=== PATIENT | male | born 1950 | race Caucasian/White ===

== ENCOUNTER 2023-09-12 19:20 | Outpatient (OUT) | payer MEDICARE, OTHER, SELFPAY | END 2023-09-12 19:21 | disposition home or self-care (01) | LOC: SLEEP 19:22 | DX: G47.33 Obstructive sleep apnea (adult) (pediatric) (principal) ==

== ENCOUNTER 2023-10-09 19:18 | Outpatient (OUT) | payer MEDICARE, OTHER, BC, SELFPAY ==
--- OUTSIDE RECORDS SUMMARY | 2023-10-09 19:21 | XMS_ITS | CCD ---
Author Name Unknown Address [address] [place] [address] Organization [facility] Care Team Providers Care Broadcast Director Operations Name Role Phone AVASTHI, GLORIA Referring Unavailable ENA GARCIA Primary Care Un available Ena Garcia Primary Care Provi radha Ena Garcia MD Primary Care Pr ovider MIS, DOCTOR Attending Unavailable MISC, DOCTOR Consulting Unavailable MISC, DOCTOR Admitting Unavailable Ena Garcia MD Primary Care Pr ovider Ena Garcia MD Primary Care Pr ovider Ena Garcia MD Primary Care Pr ovider ENA GARCIA Primary Care Un available AVASTHI, GLORIA Referring Unavailable AVJUDYI, GLORIA Referring Unavailable ENA GARCIA Primary Care Un available Medications Current Medications Medication Drug Class(es) Dates Sig (Normalized) Sig (Original) [id number] 200 actuat albuterol 0.09 mg/actuat metered dose inhaler (2 sources) beta2-Adrenergic Agonist Start: 10-25-2020 take 2 puff(s) by inhalation every six hours as needed for wheezing albuterol sulfate HFA (VENTOLIN HFA) 108 (90 Base) MCG/ACT inhaler Indications: COPD, severe (HCC) Inhale 2 puffs into the lungs every 6 hours as needed for Wheezing 1 Inhaler 5 10/25/2020 Active albuterol 0.833 mg/ml / ipratropium bromide 0.167 mg/ml inhalation solution (8 sources) Anticholinergic, beta2-Adrenergic Agonist Start: 10-25-2020 take 3 mL by inhalation three times daily ipratropium-albut luis f (DUONEB) 0.5-2.5 (3) MG/3ML SOLN nebulizer solution Indications: COPD, severe (HCC) Inhale 3 mLs into the lungs 3 times daily 360 mL 5 10/25/2020 Active Start: 02-24-2019 take 3 mL by inhalat ion three times daily ipratropium-albuterol (DUONEB) 0.5-2.5 (3) MG/3ML SOLN nebulizer solution Indications: COPD, severe (HCC) Inhale 3 mLs into the lungs 3 times daily 360 mL 5 02/24/2019 Active arformoterol 0.0075 mg/ml inhalation solution (4 sources) beta2-Adrenergic Agonist Start: 08-15-2021 Arformoterol Tartrate (BROVANA) 15 MCG/2ML NEBU Indications: COPD, severe (HCC) , Centrilobular emphysema (HCC) 1 ampule nebulized twice daily inhaled 180 vials 3 refils 120 mL 3 08/15/2021 Active aspirin 81 mg oral tablet (8 sources) Platelet Aggregation Inhibitor, Nonsteroidal Anti-inflammatory Drug Start: 02-11-2016 take 1 tablet by mouth once daily aspirin 81 MG tablet Take 1 tablet by mouth daily 1 tablet 0 02/11/2016 Active atorvastatin 80 mg oral tablet (8 sources) HMG-CoA Reductase Inhibitor Start: 01-01-2015 take 1 tablet by mouth once daily atorvastatin (LIPITOR) 80 MG tablet Take 1 tablet by mouth nightly. 30 tablet 3 01/01/2015 Active azithromycin 250 mg oral tablet (4 sources) Macrolide Antimicrobial Start: 01-22-2023 azithromycin (ZITHROMAX Z-MUMTAZ) 250 MG tablet Indications: COPD exacerbation (HCC) Azithromycin 250 mg po two tabs first day Then 250 mg po daily one tab for next 4 days 6 tablet 0 01/22/2023 Active Start: 05-02-2021 azithromycin ( ZITHROMAX Z-MUMTAZ) 250 MG tablet Indications: COPD, severe (HCC) Azithromycin 250 mg po two tabs first day Then 250 mg po daily one tab for next 4 days 6 tablet 0 05/02/2021 Active budesonide 0.125 mg/ml inhalation suspension (4 sources) Corticosteroid Start: 08-15-2021 budesonide (PULMICORT) 0.25 MG/2ML nebulizer suspension Indications: COPD, severe (HCC) , Centrilobular emphysema (HCC) Take 2 mLs by nebulization 2 times daily 180 each 3 08/15/2021 Active 60 actuat budesonide 0.08 mg/actuat / formoterol fumarate 0.0045 mg/actuat metered dose inhaler (3 sources) Corticosteroid, beta2-Adrenergic Agonist Start: 05-02-2021 End: 06-01-2021 take 2 puff(s) by inhalation twice daily budesonide-formote rol (SYMBICORT) 80-4.5 MCG/ACT AERO Indications: COPD, severe (HCC) Inhale 2 puffs into the lungs 2 times daily 3 Inhaler 3 05/02/2021 06/01/2021 Active Start: 10-07-2019 take 2 puff(s) by in halation twice daily budesonide-formoterol (SYMBICORT) 80-4.5 MCG/ACT AERO Inhale 2 puffs into the lungs 2 times daily 1 Inhaler 0 10/07/2019 Active carvedilol 25 mg oral tablet (6 sources) alpha-Adrenergic Virgil, beta-Adrenergic Virgil Start: 03-25-2021 take 1 tablet by mouth twice daily carvedilol (COREG) 25 MG tablet TAKE 1 TABLET BY MOUTH TWICE DAILY 0 03/25/2021 Active doxycycline hyclate 100 mg oral capsule (1 source) Tetracycline-class Drug take 1 capsule by mouth twice daily doxycycline hyclate (VIBRAMYCIN) 100 MG capsule Take 100 mg by mouth 2 times daily 0 Active fluticasone propionate 0.05 mg/actuat metered dose nasal spray (2 sources) Corticosteroid Start: 08-12-2019 take 1 spray(s) nasal route once daily fluticasone (FLONASE) 50 MCG/ACT nasal spray Indications: Acute seasonal allergic rhinitis due to pollen SPRAY 1 SPRAY INTO EACH NOSTRIL EVERY DAY 1 Bottle 2 08/12/2019 Active 120 actuat fluticasone propionate 0.045 mg/actuat / salmeterol 0.021 mg/actuat metered dose inhaler (1 source) Corticosteroid, beta2-Adrenergic Agonist Start: 04-07-2019 take 1 puff(s) by inhalation twice daily fluticasone-north meterol (ADVAIR HFA) 45-21 MCG/ACT inhaler Indications: COPD, severe (HCC) Inhale 1 puff into the lungs 2 times daily 1 Inhaler 8 04/07/2019 Active 30 actuat fluticasone furoate 0.1 mg/actuat / umeclidinium 0.0625 mg/actuat / vilanterol 0.025 mg/actuat dry powder inhaler (2 sources) Anticholinergic, Corticosteroid, beta2-Adrenergic Agonist Start: 05-02-2021 take 1 puff(s) by inhalation once daily fluticasone-ume clidin-vilant (TRELEGY ELLIPTA) 100-62.5-25 MCG/INH AEPB Indications: COPD, severe (HCC) Inhale 1 puff into the lungs daily 1 each 0 05/02/2021 Active 12 hr guaiFENesin 600 mg extended release oral tablet (2 sources) Start: 01-22-2023 End: 01-29-2023 take 1 tablet by mouth once daily guaiFENesin (MUCINEX) 600 MG extended release tablet Indications: COPD exacerbation (HCC) Take 1 tablet by mouth daily for 7 days 7 tablet 1 01/22/2023 01/29/2023 Active hydroCHLOROthiazide 12.5 mg / lisinopril 10 mg oral tablet (2 sources) Thiazide Diuretic, Angiotensin Converting Enzyme Inhibitor take 1.5 tablets by mouth once daily lisinopril-hydr ochlorothiazide (PRINZIDE;ZESTO RETIC) 10-12.5 MG per tablet Take 1.5 tablets by mouth daily 0 Active 24 hr isosorbide mononitrate 60 mg extended release oral tablet (2 sources) Nitrate Vasodilator isosorbide mononitrate (IMDUR) 60 MG extended release tablet Take 60 mg by mouth 0 Active metFORMIN hydrochloride 850 mg oral tablet (8 sources) Biguanide metFORMIN (GLUCOPHAGE) 850 MG tablet Take 1,000 mg by mouth 2 times daily (before meals) 1,000 mg twice a day 0 Active take 1 tablet by cody three times daily before mealtime metFORMIN (GLUCOPHAGE) 850 MG tablet Charlie e 850 mg by mouth 3 times daily (before meals). 0 Active metoprolol tartrate 50 mg oral tablet (2 sources) beta-Adrenergic Virgil Start: 01-01-2015 take 1 tablet by mouth twice daily metoprolol (LOPRESSOR) 50 MG tablet Take 1 tablet by mouth 2 times daily. 60 tablet 3 01/01/2015 Active predniSONE 10 mg oral tablet (4 sources) Start: 01-22-2023 End: 01-27-2023 take 2 tablets by mouth once daily predniSONE (DELTASONE) 10 MG tablet Indications: COPD exacerbation (HCC) Take 2 tablets by mouth daily for 5 days 10 tablet 0 01/22/2023 01/27/2023 Active Start: 05-02-2021 End: 05-07-2021 take 1 tablet by mouth once daily predniSONE (DELTASONE) 20 MG tablet Indications: COPD, severe (HCC) Take 1 tablet by mouth daily for 5 days 5 tablet 0 05/02/2021 05/07/2021 Active tiZANidine 4 mg oral tablet (2 sources) Central alpha-2 Adrenergic Agonist Start: 02-04-2016 take 1 tablet by mouth three times daily tiZANidine (ZANAFLEX) 4 MG tablet Take 1 tablet by mouth 3 times daily 45 tablet 0 02/04/2016 Active Problems Active Problems Problem Classification Problem Date Documented Da te Episodic/Chronic Chronic obstructive pulmonary disease and bronchiectasis (18 sources) Severe chronic obstructive pulmonary disease; Translations: [Chronic obstructive pulmonary disease, unspecified] Onset: 05-17-2020 Chronic Coronary atherosclerosis and other heart disease (12 sources) Coronary arteriosclerosis; Translations: [Atherosclerotic heart disease of [place] coronary artery without angina pectoris] Onset: 01-01-2015 01-01-2015 Chronic Coronary atherosclerosis and other heart disease (1 source) Presence of aortocoronary bypass graft; Translations: [PRESENCE AORTOCORONARY BYPASS GRAFT] Onset: 05-09-2021 Episodic Other upper respiratory disease (6 sources) Allergic rhinitis; Translations: [Allergic rhinitis, unspecified] Onset: 05-17-2020 05-17-2020 Chronic Residual codes; unclassified (6 sources) Obstructive sleep apnea syndrome; Translations: [Obstructive sleep apnea (adult) (pediatric)] Onset: 05-17-2020 05-17-2020 Chronic Screening and history of mental health and substance abuse codes (1 source) Tobacco use and exposure - finding Chronic Past or Other Problems Problem Classification Problem Date Documented Da te Episodic/Chronic Other lower respiratory disease (1 source) Solitary nodule of lung; Translations: [Solitary pulmonary nodule on lung CT] Episodic Spondylosis; intervertebral disc disorders; other back problems (8 sources) Spinal stenosis of lumbar region; Translations: [Spinal stenosis, lumbar region without neurogenic claudication] Onset: 02-04-2016 02-04-2016 Episodic Results Test Name Value Interpretation Reference Range Facility XR CHEST (2 VW)on 01-22-2023 XR CHEST (2 VW) EXAMINATION: TWO XRAY VIEWS OF THE CHEST 01/22/2023 9:44 am COMPARISON: 06/19/2022 HISTORY: ORDERING SYSTEM PROVIDED HISTORY: COPD, severe (HCC) TECHNOLOGIST PROVIDED HISTORY: copd FINDINGS: Again noted are midline sternotomy wires and clips. Cardiomediastinal shadow stable. Prominent lung volumes with chronic changes but no flattening of the hemidiaphragms, consolidation, sizable pleural effusion or pneumothorax. Demineralized bones with some ossification anterior longitudinal ligament, but no interval change. IMPRESSION: No acute cardiopulmonary disease. Interpreted by: El Whyte MD Signed by: El Whyte MD 01/22/23 Final result Normal [facility] No acute cardiopulmonary disease. [facility] RIS CONSOLIDATED EXAMINATION: TWO XRAY VIEWS OF THE CHEST 01/22/2023 9:44 am COMPARISON: 06/19/2022 HISTORY: ORDERING SYSTEM PROVIDED HISTORY: COPD, severe (HCC) TECHNOLOGIST PROVIDED HISTORY: copd FINDINGS: Again noted are midline sternotomy wires and clips. Cardiomediastinal shadow stable. Prominent lung volumes with chronic changes but no flattening of the hemidiaphragms, consolidation, sizable pleural effusion or pneumothorax. Demineralized bones with some ossification anterior longitudinal ligament, but no interval change. [facility] RIS CONSOLIDATED El Whyte MD - 01/22/2023 EXAMINATION: TWO XRAY VIEWS OF THE CHEST 01/22/2023 9:44 am COMPARISON: 06/19/2022 HISTORY: ORDERING SYSTEM PROVIDED HISTORY: COPD, severe (HCC) TECHNOLOGIST PROVIDED HISTORY: copd FINDINGS: Again noted are midline sternotomy wires and clips. Cardiomediastinal shadow stable. Prominent lung volumes with chronic changes but no flattening of the hemidiaphragms, consolidation, sizable pleural effusion or pneumothorax. Demineralized bones with some ossification anterior longitudinal ligament, but no interval change. IMPRESSION: No acute cardiopulmonary disease. [employer] Phone: Radiology Study observation (narrative) [employer] Phone: XR CHEST (2 VW)Ordered By: Jennifer Whyte on 01-22-2023 [employer] [facility] Performance [employer] Phone: XR Chest 2 Views*on 09-13-20 22 XR Chest 2 Views* FINDINGS: Comparison is made with prior examination January 20, 2022. No change is seen. Lung volumes are slightly increased consistent with early COPD changes. No focal infiltrates, nodules or suspicious mass lesions are seen. Cardiac silhouette size is normal. Sternotomy wires. Multilevel thoracic/lumbar fusion characteristic of DISH, conceivably ankylosing spondylitis. IMPRESSION: No acute cardiac or pulmonary disease Report reported and signed by Mitch Brown on 09/13/2022 1201 Normal [facility] Facility Maintenance Supervisor XR CHEST (2 VW)on 06-19-2022 No acute cardiopulmonary findings. [facility] RIS CONSOLIDATED EXAMINATION: TWO XRAY VIEWS OF THE CHEST 06/19/2022 9:42 am COMPARISON: Chest x-ray dated 15 August 2021 HISTORY: ORDERING SYSTEM PROVIDED HISTORY: COPD, severe (HCC) TECHNOLOGIST PROVIDED HISTORY: copd FINDINGS: The cardiomediastinal silhouette is within normal limits. Status post median sternotomy. No acute airspace infiltrate. No pneumothorax or pleural effusion [facility] RIS CONSOLIDATED Renato Cruz M D - 06/19/2022 EXAMINATION: TWO XRAY VIEWS OF THE CHEST 06/19/2022 9:42 am COMPARISON: Chest x-ray dated 15 August 2021 HISTORY: ORDERING SYSTEM PROVIDED HISTORY: COPD, severe (HCC) TECHNOLOGIST PROVIDED HISTORY: copd FINDINGS: The cardiomediastinal silhouette is within normal limits. Status post median sternotomy. No acute airspace infiltrate. No pneumothorax or pleural effusion IMPRESSION: No acute cardiopulmonary findings. [employer] Phone: Radiology Study observation (narrative) [employer] Phone: XR CHEST (2 VW)Ordered By: Radha Cruz on 06-19-2022 [facility] Work Phone: Lipid Panelon 01-20-2022 Cholesterol [Mass/Vol] 117 mg/dL Low 125-200 [facility] Facility Maintenance Supervisor Comment on above: Result Comment: Low risk < 200mg/dL Borderline risk 201-239 mg/dl High risk > or equal to 240 Performed By: #### L IPD #### [facility] [address] [place], [place] [id number] Cholesterol in HDL [Mass/Vol] 43 mg/dL Normal >40 [facility] Facility Maintenance Supervisor Comment on above: Result Comment: High Cardiovascular Risk HDL <40 mg/dL Low Cardiovascular Risk HDL > or equal to 60 mg/dl Performed By: #### L IPD #### [facility] [address] [place], [place] [id number] Cholesterol in LDL [Mass/Vol] 58 mg/dL Normal [facility] Facility Maintenance Supervisor Comment on above: Result Comment: LDL ATP III CLASSIFICATION LDL less than 100 mg/dl Optimal LDL 100-129 mg/dl Near or above optimal LDL 130-159 Borderline high LDL 160-189 High LDL greater than 189 mg/dl Very High Performed By: #### L IPD #### [facility] [address] [place], [place] [id number] Cholesterol in VLDL [Mass/Vol] 16 mg/dL Normal [facility] Specialist Comment on above: Performed By: #### L IPD #### [facility] [address] [place], [place] [id number] Cholesterol.total /Cholesterol in HDL [Mass ratio] 3 {ratio} Normal [facility] Specialist Comment on above: Performed By: #### L IPD #### [facility] [address] [place], [place] [id number] Triglyceride [Mass/Vol] 78 mg/dL Normal 30-150 [facility] Facility Maintenance Supervisor Comment on above: Result Comment: TRIG ATPIII CLASSIFICATIONS TRIG less than 150 mg/dl Normal TRIG 150-199 mg/dl Borderline High TRIG 200-500 mg/dl High TRIG greather than 500 mg/dl Very High Performed By: #### L IPD #### [facility] [address] [place], [place] [id number] PSA SCREEN (MEDICARE)on TPSA 0.314 ng/mL Normal <4.000 [facility] Facility Maintenance Supervisor Comment on above: Result Comment: PSA Test Method: ECLIA/Tameka e 601 Performed By: #### P SA #### [facility] [address] [facility] [place] [id number] XR Chest 2 Views*on 01-21-20 22 SARS-CoV-2 (COVID-19) RNA MAEVE+probe Ql (Unsp spec) HISTORY: Heart surgery, COVID FINDINGS: Left lower chest haziness most conspicuous on the PA view with no significant parenchymal consolidation, infiltrate, pulmonary edema. Sternotomy wires. Mid thoracic dextroscoliosis with multilevel fusion characteristic of DISH. IMPRESSION: 1. No focal infiltrates. 2. Left lower chest findings likely pleural base scarring. Report reported and signed by Mitch Brown on 01/20/2022 1216 Normal [facility] Facility Maintenance Supervisor XR CHEST (2 VW)Ordered By: Elzbieta Sheppard on 05-02-2021 New mild left basila r opacity likely to focal atelectasis versus infiltrate with mild left basilar pleural process, pleural thickening versus small left effusion [employer] Phone: EXAMINATION: TWO XRA Y VIEWS OF THE CHEST 05/02/2021 8:43 am COMPARISON: March 29, 2020 CT chest HISTORY: ORDERING SYSTEM PROVIDED HISTORY: COPD, severe ([facility]) TECHNOLOGIST PROVIDED HISTORY: COPD FINDINGS: Interval median sternotomy Normal cardiopericardial silhouette Persistent mild asymmetric elevation left hemidiaphragm Clear right and left upper lung. New mild left basilar opacity Postsurgical changes of the lower cervical spine [employer] Phone: Jordon, pn Incoming Radiant Results From [employer] - 05/02/2021 9:37 AM EDT EXAMINATION: TWO XRAY VIEWS OF THE CHEST 05/02/2021 8:43 am COMPARISON: March 29, 2020 CT chest HISTORY: ORDERING SYSTEM PROVIDED HISTORY: COPD, severe (HCC) TECHNOLOGIST PROVIDED HISTORY: COPD FINDINGS: Interval median sternotomy Normal cardiopericardial silhouette Persistent mild asymmetric elevation left hemidiaphragm Clear right and left upper lung. New mild left basilar opacity Postsurgical changes of the lower cervical spine IMPRESSION: New mild left basilar opacity likely to focal atelectasis versus infiltrate with mild left basilar pleural process, pleural thickening versus small left effusion [employer] Phone: [employer] Phone: CT CHEST LOW DOSE (LDCT)on 0 03-29-2020 1. Interval resoluti on of the 4 mm superior segment right lower lobe nodule reported in August 2019 which was new at that time. 2. Stable 4 mm superior segment left lower lobe nodule dating back to 2016. RECOMMENDATIONS: Resume lung screening. [place] EXAMINATION: LOW DOS E OF THE CT CHEST WITHOUT CONTRAST 03/29/2020 9:35 am TECHNIQUE: Low Dose of the CT Chest without the administration of intravenous contrast (MA=40). Multiplanar reformatted images are provided for review. Dose modulation, iterative reconstruction, and/or weight based adjustment of the mA/kV was utilized to reduce the radiation dose to as low as reasonably achievable. COMPARISON: 09/02/2019 HISTORY: ORDERING SYSTEM PROVIDED HISTORY: Solitary pulmonary nodule on lung CENTRAL SUPPLY NURSE PROVIDED HISTORY: Without contrast lung nodule follow up Reason for Exam: FOLLOW UP FOR PULMONARY NODULE ON PREVIOUS CT Additional signs and symptoms: copd, FORMER SMOKER FINDINGS: Mediastinum: Cardiac size normal. Normal caliber aorta. Coronary artery and aortic atherosclerotic calcifications noted. No significant mediastinal, hilar or axillary lymphadenopathy. Thyroid gland and esophagus grossly normal. Lungs/pleura: Mild centrilobular emphysema. Unchanged 4 mm solid noncalcified nodule in the inner aspect of superior segment left lower lobe. The 4 mm nodule reported in the medial aspect superior segment right lower lobe on study of August 2019 has resolved. No new nodules. No focal consolidation. No pleural effusion or pneumothorax. Upper Abdomen: No adrenal mass. No suspicious lesions. Soft Tissues/Bones: Diffuse degenerative changes. No acute abnormality of the bones. The superficial soft tissues show no significant abnormalities. [place], [place] Jordon, [employer] Incoming Radiant Results From [employer] - 03/29/2020 9:58 AM EDT EXAMINATION: LOW DOSE OF THE CT CHEST WITHOUT CONTRAST 03/29/2020 9:35 am TECHNIQUE: Low Dose of the CT Chest without the administration of intravenous contrast (MA=40). Multiplanar reformatted images are provided for review. Dose modulation, iterative reconstruction, and/or weight based adjustment of the mA/kV was utilized to reduce the radiation dose to as low as reasonably achievable. COMPARISON: 09/02/2019 HISTORY: ORDERING SYSTEM PROVIDED HISTORY: Solitary pulmonary nodule on lung CENTRAL SUPPLY NURSE PROVIDED HISTORY: Without contrast lung nodule follow up Reason for Exam: FOLLOW UP FOR PULMONARY NODULE ON PREVIOUS CT Additional signs and symptoms: copd, FORMER SMOKER FINDINGS: Mediastinum: Cardiac size normal. Normal caliber aorta. Coronary artery and aortic atherosclerotic calcifications noted. No significant mediastinal, hilar or axillary lymphadenopathy. Thyroid gland and esophagus grossly normal. Lungs/pleura: Mild centrilobular emphysema. Unchanged 4 mm solid noncalcified nodule in the inner aspect of superior segment left lower lobe. The 4 mm nodule reported in the medial aspect superior segment right lower lobe on study of August 2019 has resolved. No new nodules. No focal consolidation. No pleural effusion or pneumothorax. Upper Abdomen: No adrenal mass. No suspicious lesions. Soft Tissues/Bones: Diffuse degenerative changes. No acute abnormality of the bones. The superficial soft tissues show no significant abnormalities. IMPRESSION: 1. Interval resolution of the 4 mm superior segment right lower lobe nodule reported in August 2019 which was new at that time. 2. Stable 4 mm superior segment left lower lobe nodule dating back to 2015. RECOMMENDATIONS: Resume lung screening. [place], [place] CT LUNG SCREENING (INITIAL/A NNUAL)on 09-02-2019 CT LUNG SCREENING (INITIAL/ANNUAL) EXAMINATION: LOW DOSE SCREENING CT OF THE CHEST WITHOUT CONTRAST TECHNIQUE: Low dose lung cancer screening CT of the chest was performed without the administration of intravenous contrast. Multiplanar reformatted images are provided for review. Dose modulation, iterative reconstruction, and/or weight based adjustment of the mA/kV was utilized to reduce the radiation dose to as low as reasonably achievable. COMPARISON: 09/02/2018, 09/06/2016 HISTORY: Screening. Patient Age: 68 y/o Number of pack years of smokin.5 If no longer smoking, number of years since cessation: Quit date 09/06/2004 Other symptoms: FINDINGS: Mediastinum: The cardiac size is normal. Coronary artery calcifications. There is no significant mediastinal, hilar or axillary lymphadenopathy. The thyroid gland shows no significant abnormalities. The esophagus shows no significant abnormalities. Lungs/Pleura: Unchanged solid noncalcified 4 mm nodule in the superior segment left lower lobe series 4, image 81. There is a new 4 mm nodule seen posteromedially in the superior segment right lower lobe on image 80. No focal consolidation. No pleural effusion or pneumothorax. Upper Abdomen: No suspicious masses. Soft Tissues/Bones: No acute abnormality of the bones. The superficial soft tissues show no significant abnormalities. IMPRESSION: 1. A new solid noncalcified 4 mm nodule in the posteromedial superior segment right lower lobe noted. Probably benign. Six-month follow-up. 2. Stable 4 mm nodule superior segment left lower lobe dating back to 2015. LUNG RADS: Per ACR Lung-RADS Version 1.0 Category 3, Probably benign. Management: Short-term follow-up suggested, 6 Month LDCT. (probability of malignancy 1-2%). RECOMMENDATIONS: If you would like to register your patient with the [facility] Lung Nodule/Lung Cancer Screening Program, please contact the Nurse Navigator at [phone] Interpreted by: Deerk Regalado MD Signed by: Derek Regalado MD 09/02/19 Final result Normal [facility] CT Lung Screen (Annual)Order ed By: Gloria Sheppard on 09-02-2019 1. A new solid noncalcified 4 mm nodule in the posteromedial superior segment right lower lobe noted. Probably benign. Six-month follow-up. 2. Stable 4 mm nodule superior segment left lower lobe dating back to 2015. LUNG RADS: Per ACR Lung-RADS Version 1.0 Category 3, Probably benign. Management: Short-term follow-up suggested, 6 Month LDCT. (probability of malignancy 1-2%). RECOMMENDATIONS: If you would like to register your patient with the [facility] Lung Nodule/Lung Cancer Screening Program, please contact the Nurse Navigator at [phone] [facility] Work Phone: EXAMINATION: LOW DOS E SCREENING CT OF THE CHEST WITHOUT CONTRAST TECHNIQUE: Low dose lung cancer screening CT of the chest was performed without the administration of intravenous contrast. Multiplanar reformatted images are provided for review. Dose modulation, iterative reconstruction, and/or weight based adjustment of the mA/kV was utilized to reduce the radiation dose to as low as reasonably achievable. COMPARISON: 09/02/2018, 09/06/2016 HISTORY: Screening. Patient Age: 68 y/o Number of pack years of smokin.5 If no longer smoking, number of years since cessation: Quit date 09/06/2004 Other symptoms: FINDINGS: Mediastinum: The cardiac size is normal. Coronary artery calcifications. There is no significant mediastinal, hilar or axillary lymphadenopathy. The thyroid gland shows no significant abnormalities. The esophagus shows no significant abnormalities. Lungs/Pleura: Unchanged solid noncalcified 4 mm nodule in the superior segment left lower lobe series 4, image 81. There is a new 4 mm nodule seen posteromedially in the superior segment right lower lobe on image 80. No focal consolidation. No pleural effusion or pneumothorax. Upper Abdomen: No suspicious masses. Soft Tissues/Bones: No acute abnormality of the bones. The superficial soft tissues show no significant abnormalities. [employer] Phone: Jordon, chip Incoming Radiant Results From [employer] - 09/02/2019 11:18 AM EST EXAMINATION: LOW DOSE SCREENING CT OF THE CHEST WITHOUT CONTRAST TECHNIQUE: Low dose lung cancer screening CT of the chest was performed without the administration of intravenous contrast. Multiplanar reformatted images are provided for review. Dose modulation, iterative reconstruction, and/or weight based adjustment of the mA/kV was utilized to reduce the radiation dose to as low as reasonably achievable. COMPARISON: 09/02/2018, 09/06/2016 HISTORY: Screening. Patient Age: 68 y/o Number of pack years of smokin.5 If no longer smoking, number of years since cessation: Quit date 09/06/2004 Other symptoms: FINDINGS: Mediastinum: The cardiac size is normal. Coronary artery calcifications. There is no significant mediastinal, hilar or axillary lymphadenopathy. The thyroid gland shows no significant abnormalities. The esophagus shows no significant abnormalities. Lungs/Pleura: Unchanged solid noncalcified 4 mm nodule in the superior segment left lower lobe series 4, image 81. There is a new 4 mm nodule seen posteromedially in the superior segment right lower lobe on image 80. No focal consolidation. No pleural effusion or pneumothorax. Upper Abdomen: No suspicious masses. Soft Tissues/Bones: No acute abnormality of the bones. The superficial soft tissues show no significant abnormalities. IMPRESSION: 1. A new solid noncalcified 4 mm nodule in the posteromedial superior segment right lower lobe noted. Probably benign. Six-month follow-up. 2. Stable 4 mm nodule superior segment left lower lobe dating back to 2016. LUNG RADS: Per ACR Lung-RADS Version 1.0 Category 3, Probably benign. Management: Short-term follow-up suggested, 6 Month LDCT. (probability of malignancy 1-2%). RECOMMENDATIONS: If you would like to register your patient with the [facility] Lung Nodule/Lung Cancer Screening Program, please contact the Nurse Navigator at [phone] [facility] Work Phone: Encounters Encounter Date Encounter Type Care Provider Facility Start: 01-22-2023 End: 01-25-2023 ambulatory ENA GARCIA [facility] Start: 01-22-2023 End: 01-24-2023 Subsequent hospital visit by physician Dominique Dp 2 [facility] Radiology Comment on above: COPD, severe (HCC) Start: 06-19-2022 End: 06-21-2022 Subsequent hospital visit by physician Dominique C-Arm 1 [facility]iology Comment on above: COPD, severe (HCC) Start: 05-02-2021 End: 05-04-2021 Subsequent hospital visit by physician Dominique McH Xr [facility]iology Comment on above: COPD, severe (HCC) Start: 04-05-2021 End: 07-13-[address] DOCTOR SILVA Facility:[facility] Start: 03-29-2020 End: 03-31-2020 Subsequent hospital visit by physician Fina Ct Rm 1 [facility] CT Scan Comment on above: Solitary pulmonary n odule on lung CT 4 mm Start: 09-02-2019 End: 09-05-2019 Patient encounter procedure GLORIA SHEPPARD [facility] Start: 09-02-2019 End: 09-04-2019 Subsequent hospital visit by physician Fina 1 [facility] CT Scan Comment on above: Personal history of tobacco use Procedures Date Procedure Procedure Detail Performing Clinician Start: 01-22-2023 Radiologic exam ches t 2 views Gloria Sheppard MD Work Phone: Start: 06-19-2022 Radiologic exam ches t 2 views Gloria Sheppard MD Work Phone: Start: 05-02-2021 Radiologic exam ches t 2 views Gloria Sheppard MD Work Phone: Start: 03-29-2020 Ct thorax w/o contra st material Gloria Sheppard Work Phone: Start: 09-02-2019 Ldct for lung ca screen GLORIA SHEPPARD Start: 09-02-2019 Ldct for lung ca screen Gloria Sheppard MD Work Phone: Plan of Treatment Date Care Activity Detail Author Start: 07-30-2023 End: 07-30-2023 Patient encounter procedure 07/30/2023 Office [place] [address] [place] [address] [id number] [employer] Start: 04-10-2023 DTaP/Tdap/Td vaccine (2 - Td or Tdap) DTaP/Tdap/Td vaccine (2 - Td or Tdap) [facility] Start: 04-10-2023 DTaP/Tdap/Td vaccine (2 - Td) DTaP/Tdap/Td vaccine (2 - Td) [facility] Work Phone: Start: 01-01-2023 End: 01-01-2023 Patient encounter procedure 01/01/2023 Office [place] [address] [place] [id number] [employer] Start: 03-17-2022 Lipid panel Lipids [facility] Start: 08-15-2021 End: 08-15-2021 Patient encounter procedure 08/15/2021 Office Visit Pulmonology Gloria Sheppard MD [address] [id number] [employer] [facility] Start: 05-18-2021 Influenza vaccination Flu vaccine (#1) [facility] Work Phone: Start: 09-02-[address] lung screening Low dose CT lung screening [employer] Phone: Start: 05-18-2020 Influenza vaccination Flu [facility] (#1[place] [facility] [place] [place] Start: 05-17-2020 End: 05-17-2020 Office Visit 05/17/2020 Office Visit Pulmonology Gloria Sheppard MD [address] [id number] [employer] [facility] Start: 10-06-2019 End: 10-06-2019 Patient encounter procedure 10/06/2019 Office Visit Pulmonology Gloria Sheppard MD [address] [id number] [employer] Start: 03-05-2019 Annual Wellness Visit (AWV) Annual Wellness Visit (AWV) [employer] Start: 2017 Abdominal aortic aneurysm screening AAA screen [employer] Start: 02-03-2017 Potassium monitoring Potassium monitoring [employer] Phone: Start: 01-30-2017 Creatinine measurement [facility] [place] Start: 01-30-2017 Creatinine monitoring Creatinine monitoring [employer] Phone: Start: 10-07-2014 Shingles Vaccine (2 of 3) Shingles Vaccine (2 of 3) [employer] Start: 2002 Colon cancer screen colonoscopy Colon cancer screen colonoscopy [employer] Phone: Start: 2002 Screening for malignant neoplasm of colon Colon cancer [facility] [place] Start: 1997 Screening for malignant neoplasm of colon [employer] Start: 1992 Diabetes screen Diabetes screen [employer] Phone: Start: 1987 Diabetes screen Diabetes screen [employer] Start: 1970 Hepatitis C screening Hepatitis C screen [employer] Start: 1964 Depression Screen Depression Screen [facility] Start: 1962 Lipid panel [facility] Start: 1962 Lipid screen Lipid screen [facility] Phone: Start: 1952 AAA screen AAA screen [facility] Phone: Start: 1952 Abdominal aortic aneurysm screening AAA screen [place], [place] Start: 1952 Hepatitis C screen Hepatitis C screen [facility] Phone: Start: 1952 Hepatitis C screening Hepatitis C screen [place], [place] Immunizations Immunization Date Immunization Notes Care Provider Roman ron 06-19-2022 Influenza, injectabl e, Madin [place] Canine Kidney, preservative free, quadrivalent Ena Garcia MD Work Phone: [facility] 04-07-2019 pneumococcal polysaccharide vaccine, [address] Work Phone: 06-25-2018 influenza, high dose seasonal, preservative-free [address] Phone: 06-25-2018 pneumococcal conjuga te vaccine, [address] Phone: 10-01-2017 pneumococcal conjuga te vaccine, [address] Phone: 06-30-2017 Influenza Vaccine, unspecified formulation [address] Work Phone: 06-30-2017 influenza, seasonal, injectable, preservative free [address] Work Phone: 06-28-2017 influenza virus vacc ine, unspecified formulation [address] Phone: 06-29-2016 influenza virus vacc ine, unspecified formulation [address] Phone: 08-12-2014 zoster vaccine, live [address] [employer] Work Phone: 05-29-2014 Influenza Vaccine, unspecified formulation [facility] 1 [facility] Work Phone: 06-20-2013 Influenza Vaccine, unspecified formulation [facility] 1 [facility] Work Phone: 04-10-2013 tetanus toxoid, redu robbi diphtheria toxoid, and acellular pertussis vaccine, adsorbed St 1 [facility] Phone: 07-01-2012 pneumococcal polysaccharide vaccine, [address] [facility] 07-13-2011 influenza virus vacc ine, whole virus [facility] 1 [facility] Phone: Payers Date Payer Category Payer Medicare MEDICARE MEDICAR E PART A AND B [id number] 2017-Present [phone] [place] [address] [id number] 2017 Medicare MEDICARE MEDICAR E PART A AND B xxxxxxxxxxx 2017-Present [phone] [id number] [place] [id number] xxxxxxxxxxx [id number] 2017 Unknown [employer] M [employer] [address] [id number] 2017-Present [phone] [address] [place] [address] [id number] 2017 Unknown [employer] M [employer] [address] xxxxxxxxxxxx 2017-Present [phone] [address] [place] [address] xxxxxxxxxxxx [id number] 1959 Medicare [id number] 1959 Unknown [id number] 1952 Unknown [id number] 1952 Unknown [id number] 1952 Unknown [id number] 1952 Unknown [id number] Social History Date Type Detail Facility Start: 10-06-2019 End: 06-19-2022 Tobacco smoking status NHIS Former smoker [employer] Phone: Start: 09-17-1965 End: 09-06-2004 History of tobacco use Current smoker [employer] Phone: Start: 10-06-2019 End: 06-19-2022 Cigarettes smoked current (pack per day) - Reported [employer] Phone: Start: 10-06-2019 End: 06-19-2022 Tobacco use and exposure Never used [facility] [place] [place] Start: 10-06-2019 End: 01-22-2023 Alcohol intake Current non-drinker of alcohol (finding) [employer] Phone: Start: 1950 Sex Assigned At Not on file [employer] Phone: Start: 06-06-2022 End: 06-16-2022 Exposure to SARS-CoV-2 (event) [facility] sure [facility] [place] Start: 09-17-1965 End: 09-06-2004 History of tobacco use Cigarette Smoker DEBRA PETERSEN [employer] Phone: Evaluation note Note Date & Type Note Facility Evaluation note Diagnosis COPD, severe (HCC) Chronic airway obstruction, not elsewhere classified documented in this encounter [employer] Phone: Evaluation note Note Date & Type Note Facility Evaluation note Diagnosis Personal history of tobacco use Personal history of tobacco use, presenting hazards to health documented in this encounter [employer] Phone: Evaluation note Note Date & Type Note Facility Evaluation note Diagnosis COPD, severe (HCC) Chronic airway obstruction, not elsewhere classified documented in this encounter [employer] Phone: Evaluation note Note Date & Type Note Facility Evaluation note Diagnosis COPD, severe (HCC) Chronic airway obstruction, not elsewhere classified documented in this encounter [facility] [employer] Phone: Summary Purpose Family History No Family History Records FoundNo Family History Records FoundNo Family History Records FoundNo Family History Records Found Advance Directives No Advanced Directives Records FoundDocuments on File Type Date 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 Directives and Living Will Power of Condenser Operator Latest Code Status on File Code Status Date Activated Date Inactivated Comments Full Code 02/04/2016 6:30 PM 02/05/2016 1:47 PM Full Code 01/01/2015 3:45 PM 01/01/2015 8:26 PM Full Code 01/01/2015 1:04 PM 01/01/2015 3:45 PM Documents on File Type Date Recorded 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 ACP-Advance Directive ACP-Power of Condenser Operator Latest Code Status on File Code Status Date Activated Date Inactivated Comments Full Code 02/04/2016 6:30 PM 02/05/2016 1:47 PM Full Code 01/01/2015 3:45 PM 01/01/2015 8:26 PM Full Code 01/01/2015 1:04 PM 01/01/2015 3:45 PM Latest Code Status on File Code Status Date Activated Date Inactivated Comments Full Code 02/04/2016 6:30 PM 02/05/2016 1:47 PM Code Status History Code Status Date Activated Date Inactivated Comments Full Code 01/01/2015 3:45 PM 01/01/2015 8:26 PM Full Code 01/01/2015 1:04 PM 01/01/2015 3:45 PM Reason for Referral Status Reason Specialty Diagnoses / Procedures Referre d By Contact Referred To Contact Closed Radiology Diagnoses Solitary pulmonary nodule on lung CT Procedures CT CHEST LOW DOSE (LDCT) Gloria Sheppard MD [address] [place] [address] Status Reason Specialty Diagnoses / Procedures Referre d By Contact Referred To Contact Closed Radiology Diagnoses Personal history of tobacco use Procedures CT Lung Screen (Annual) Gloria Sheppard MD [address] [address] Assessments Diagnosis Solitary pulmonary nodule on lung CT 4 mm Additional Source Comments (unrecognized sect ion and content) No Status Records FoundNo Status Records FoundNo Status Records FoundNo Status Records Found INFORMATION SOURCE (unrecogn ized section and content) DATE CREATED AUTHOR 09/05/2019 [facility] DATE CREATED AUTHOR AUTHOR'S ORGANIZ ATION 07/14/2021 [facility] pital DATE CREATED AUTHOR AUTHOR'S ORGANIZ ATION 09/13/2022 [facility] DATE CREATED AUTHOR AUTHOR'S ORGANIZ ATION 08/10/2023 [facility] Reason for Visit (unrecogniz ed section and content) Status Reason Specialty Diagnoses / Procedures Referre d By Contact Referred To Contact Closed Radiology Diagnoses Solitary pulmonary nodule on lung CT Procedures CT CHEST LOW DOSE (LDCT) Gloria Sheppard MD [address] [address] Status Reason Specialty Diagnoses / Procedures Referre d By Contact Referred To Contact Closed Radiology Diagnoses Personal history of tobacco use Procedures CT Lung Screen (Annual) Gloria Sheppard MD [address] [address] Care Teams (unrecognized sec tion and content) Broadcast Director Operations Relationship Specialty Start Date End Date Ena Garcia MD PCP - General 01/31/16 Broadcast Director Operations Relationship Specialty Start Date End Date Ena Garcia MD PCP - General 01/31/16 Broadcast Director Operations Relationship Specialty Start Date End Date Ena Garcia MD PCP - General 01/31/16 Broadcast Director Operations Relationship Specialty Start Date End Date Ena Garcia MD PCP - General 01/31/16 FOR RECORDS PERTAINING TO PATIENTS WHO ARE OR HAVE BEEN ENROLLED IN A CHEMICAL DEPENDENCY/SUBSTANCEABUSE PROGRAM, SOME INFORMATION MAY BE OMITTED. This clinical summary was aggregated from multiple sources. Caution should be exercised in using it in the provision of clinical care. This summary normalizes information from multiple sources, and as a consequence, information in this document may materially change the coding, format and clinical context of patient data. In addition, data may be omitted in some cases. CLINICAL DECISIONS SHOULD BE BASED ON THE PRIMARY CLINICAL RECORDS. [facility] [employer], [facility]. provides no warranty or guarantee of the accuracy or completeness of information in this document.
== END 2023-10-09 19:19 | disposition home or self-care (01) ==
LOC: SLEEP 19:19
DX: J44.9 Chronic obstructive pulmonary disease, unspecified (principal); G47.33 Obstructive sleep apnea (adult) (pediatric)
CPT/HCPCS: 95811